=== PATIENT | female | born 1955 | race Caucasian/White ===

== ENCOUNTER 2017-01-22 08:43 | Emergency (ER) | payer OTHER ==
[~2017-01-22] VITALS: Ht 157.5 cm; Wt 68.0 kg
[~2017-01-22 08:43] MED LIST: ESCI10TA PO
[2017-01-22 08:46] VITALS: Ht 157.5 cm; Wt 68.0 kg
[2017-01-22] MEDS ORDERED: ASPIRIN 325 MG TAB PO STA (09:06)
[2017-01-22] MEDS ORDERED: SOD CHLORIDE 0.9% 1,000 ML IV STA ×2 (09:06→09:17)
[2017-01-22] MEDS ORDERED: LORAZEPAM 2 MG INJ IV STA (09:06)
[2017-01-22] MEDS ORDERED: ONDANSETRON 4 MG INJ IV STA ×2 (09:17→10:54)
--- NOTE | 2017-01-22 09:22 | ERD ---
ER Documentation Chief Complaint Date/Time DATE: 01/22/17 TIME: 09:17 Chief Complaint Complains of mid-sternal chest pain radiates to the arm HPI This is a 61-year-old female with a history of anxiety. She presents to the emergency department indicating she has been experiencing epigastric discomfort since 11 PM yesterday evening, 10 hours prior to arrival. She states the epigastric pain is a sharp shooting pain with no alleviating or exacerbating factors. She states she never had any similar symptoms in the past. She also complains of a sharp shooting pain underneath her left breast and contrary to the triage note states it does not radiate to the neck arm back or jaw. She is no shortness of breath at rest or exertion. She denies any chest pressure. She feels nauseous but has not experienced any hemoptysis hematemesis and no melanotic stools. She denies any recent travel or prolonged immobilization. She denies any suicidal homicidal thoughts or ideations but states she has been undergoing a significant amount of stress which has been present for the past several years as her daughter 3 years ago and her mother one year ago. ROS All systems reviewed and are negative except as per history of present illness. Medications Home Meds Reported Medications Escitalopram Oxalate* (Lexapro*) 10 Mg Tablet, 10 MG PO DAILY, TAB 11/07/14 Allergies Allergies: Coded Allergies: codeine (Verified Allergy, Intermediate, RASH, 01/22/17) PMhx/Soc History of Surgery: Yes (C SECTION) Anesthesia Reaction: No Hx Neurological Disorder: No Hx Respiratory Disorders: No Hx Cardiac Disorders: No Hx Psychiatric Problems: No Hx Miscellaneous Medical Probl: No Hx Alcohol Use: No Hx Substance Use: No Hx Tobacco Use: No Physical Exam Vitals Vital Signs Date Time Temp Pulse Resp B/P Pulse Ox O2 Delivery O2 Flow Rate FiO2 01/22/17 09:35 77 18 122/65 98 Room Air 01/22/17 08:46 97.6 76 20 137/66 100 Physical Exam Constitutional:Well-developed. Well-nourished. HEENT:Normocephalic. Atraumatic.Pupils were equal round reactive to light. Moist mucous membranes.No tonsillar exudates. Neck: No nuchal rigidity. No lymphadenopathy. No posterior cervical spine tenderness or step-offs. Respiratory: Not using accessory muscles of respiration.Lungs were clear to auscultation bilaterally. No rhonchi. No rales. No wheezing. Cardiovascular: Regular rate regular rhythm.No murmurs. No rubs were appreciated.S1, S2 normal. Distal pulses are palpable 2+ bilaterally. Tenderness over the left chest wall with no crepitus no ecchymosis no flail chest GI: Abdomen was soft. Epigastric tenderness Non Distended. No pulsatile abdominal masses or bruits. No rebound. No guarding. Bowel sounds were present and normal. Muscle skeletal: Full range of motion of both the upper and lower extremities bilaterally.Normal muscle tone.No assymetrical calf tenderness or swelling. Skin: No petechia, no purpura. No lesions on the palms or the soles of the feet. No maculopapular rash. NEURO: Patient was alert, awake, orientated x3.No facial droop. Gait observed and normal with no ataxia.Speech had regular rate and rhythm. No focal neurological deficits. Result Diagram: 01/22/1720 01/22/17 0920 Results 24 hrs Laboratory Tests Test 01/22/17 09:20 White Blood Count 7.810^3/ul Red Blood Count 5.2310^6/ul Hemoglobin 15.3g/dl Hematocrit 45.8% Mean Corpuscular Volume 87.6fl Mean Corpuscular Hemoglobin 29.3pg Mean Corpuscular Hemoglobin Concent 33.4g/dl Red Cell Distribution Width 13.8% Platelet Count 36410^3/UL Mean Platelet Volume 10.1fl Neutrophils % 88.9% Lymphocytes % 6.8% Monocytes % 3.3% Eosinophils % 0.4% Basophils % 0.3% Nucleated Red Blood Cells % 0.0/100WBC Neutrophils # 7.010^3/ul Lymphocytes # 0.510^3/ul Monocytes # 0.310^3/ul Eosinophils # 0.010^3/ul Basophils # 0.010^3/ul Nucleated Red Blood Cells # 0.010^3/ul Prothrombin Time 14.3Sec Prothrombin Time Ratio 1.1 INR International Normalized Ratio 1.11 Activated Partial Thromboplast Time 35.7Sec Sodium Level 139mmol/L Potassium Level 3.6mmol/L Chloride Level 104mmol/L Carbon Dioxide Level 22mmol/L Anion Gap 17 Blood Urea Nitrogen 17mg/dl Creatinine 0.66mg/dl Glucose Level 112mg/dl Calcium Level 9.0mg/dl Total Bilirubin 0.7mg/dl Direct Bilirubin 0.00mg/dl Indirect Bilirubin 0.7mg/dl Aspartate Amino Transf (AST/SGOT) 30IU/L Alanine Aminotransferase (ALT/SGPT) 28IU/L Alkaline Phosphatase 77IU/L Creatine Kinase 70IU/L Creatine Kinase Index 0.9 Creatinine Kinase MB (Mass) 0.63ng/ml Troponin I < 0.012ng/ml B-Type Natriuretic Peptide 104PG/ML Total Protein 7.2g/dl Albumin 4.1g/dl Globulin 3.10g/dl Albumin/Globulin Ratio 1.32 Amylase Level 76U/L Lipase 53U/L Current Medications Medications (Trade) Dose Ordered Sig/[place] Route PRN Reason Start Time Stop Time Status Last Admin Dose Admin Sodium Chloride (NS) 1,000 ml @ 1,000 mls/hr Q1H STAT IV 01/22/17 09:06 01/22/17 10:05 DC 01/22/17 09:42 Aspirin (Aspirin) 325 mg ONCE STAT PO 01/22/17 09:06 01/22/17 09:07 DC 01/22/17 09:41 Lorazepam 0.5 mg 0.5 mg ONCE STAT IV 01/22/17 09:06 01/22/17 09:07 DC 01/22/17 09:41 Sodium Chloride (NS) 1,000 ml @ 1,000 mls/hr Q1H STAT IV 01/22/17 09:17 01/22/17 10:16 DC 01/22/17 09:42 Ondansetron HCl (Zofran Inj) 4 mg ONCE STAT IV 01/22/17 09:17 01/22/17 09:18 DC 01/22/17 09:41 IV Flush 10 ml 10 ml STK-MED ONCE .ROUTE 01/22/17 10:34 01/22/17 10:35 DC 01/22/17 10:49 Sodium Chloride (NS) 100 ml @ ud STK-MED ONCE .ROUTE 01/22/17 10:34 01/22/17 10:35 DC 01/22/17 10:49 Iohexol (Omnipaque 300mg/ ml) 30 ml STK-MED ONCE .ROUTE 01/22/17 10:34 01/22/17 10:35 DC Iohexol (Omnipaque 300mg/ ml) 150 ml STK-MED ONCE .ROUTE 01/22/17 10:34 01/22/17 10:35 DC 01/22/17 10:49 Morphine Sulfate (morphine) 4 mg ONCE STAT IV 01/22/17 10:54 01/22/17 10:57 DC 01/22/17 11:10 Ondansetron HCl (Zofran Inj) 4 mg ONCE STAT IV 01/22/17 10:54 01/22/17 10:56 DC 01/22/17 11:10 Procedures/MDM The patient presented to the emergency department with epigastric pain. My differential diagnosis included but was not limited to abdominal aortic aneurysm , choledocholithiasis, gallstone ileus, renal colic, pyelonephritis, pancreatitis, peptic ulcer disease, atypical myocardical infarction, mesenteric ischemia, GERD, pulmonary infarction. The patient was placed on a it quality assurance analyst, continuous pulse oximetry and IV access was established by nursing staff. An EKG was obtained to rule out myocardial ischemia. There was no elevation of LFTs to suggest ductal obstruction, cholangitis, cholecystiitis or hepatitis. Given that the urinalysis did not show bilirubinuria, my suspicion for common duct obstruction or hepatitis was low. 12 Lead EKG tracing ordered and reviewed by myself showed: Normal sinus rhythm of 70 bpm and no arrhythmia. TN interval normal. QRS duration normal. No ST segment elevation No ST segment depression. No changes consistent with acute ischemia. The patient also presented to the emergency department complaining of chest pain. My clinical evaluation and workup was to distinguish minor causes of chest pain from acute life threatening cardiopulmonary causes such as myocardial infarction, pulmonary embolism, aortic dissection, esophageal rupture , cardiac tamponade, The patients chest pain was reproduced by palpation and horizontal flexion of the arms. It was my clinical impression that the pain was a result of inflammation of the skin and subcutaneous structures of the chest wall versus myocardial ischemia. I felt the patient had low-risk chest pain and could therefore be safely discharged with close follow-up. Regarding the patient's abdominal pain I did obtain a CT scan of the abdomen which was reviewed by the radiologist as well as myself and indicated the following: Mild scattered colonic wall thickening is nonspecific in the setting of under distension, however, an acute colitis may have this appearance in the appropriate clinical setting. No evidence of bowel obstruction. Normal-caliber appendix.. Moderate lumbar levoscoliosis with multilevel degenerative changes. The patient was very tearful during repeat examinations. She however denied any suicidal homicidal thoughts ideations. I did have the pediatric social worker speak with the patient to provide different outpatient resources for the patient on a psychiatric basis. Observation Note: Time: 4 hours Family Hx: No Hypertension Evaluation: Multiple exams showed improving symptoms and no evidence of peritoneal signs. The patient will be sent home with prophylactic antibiotics for acute colitis given Cipro and Flagyl. She had no electrolyte abnormalities. Her pain had completely resolved after receiving IV morphine and Zofran Departure Diagnosis: Primary Impression: Costochondritis, acute Additional Impression: Colitis, acute Condition: Fair LIGIA REYES Jan 22, 2017 09:22
[2017-01-22 09:35] VITALS: PULSE 77
[2017-01-22 09:41] LABS: ADD SCAN DIFF NO
[2017-01-22 09:45] LABS: ABNORMAL IP MESSAGE 1; BASOPHILS % 0.3 % (0.0-2.0); EOSINOPHILS % 0.4 % (0.0-7.0); HEMATOCRIT 45.8 % (37.0-47.0); HEMOGLOBIN 15.3 g/dl (12.0-16.0); LYMPHOCYTES # 0.5 10^3/ul (0.8-2.9); LYMPHOCYTES % 6.8 % (15.0-51.0); MEAN CORPUSCULAR HEMOGLOBIN 29.3 pg (29.0-33.0); MEAN CORPUSCULAR HGB CONC 33.4 g/dl (32.0-37.0); MEAN CORPUSCULAR VOLUME 87.6 fl (82.0-101.0); MEAN PLATELET VOLUME 10.1 fl (7.4-10.4); MONOCYTE # 0.3 10^3/ul (0.3-0.9); MONOCYTES % 3.3 % (0.0-11.0); NEUTROPHILS % 88.9 % (39.0-77.0); PLATELET COUNT 273 10^3/UL (140-415); RED BLOOD COUNT 5.23 10^6/ul (4.20-5.40); RED CELL DISTRIBUTION WIDTH 13.8 % (11.5-14.5); WHITE BLOOD COUNT 7.8 10^3/ul (4.8-10.8)
[2017-01-22 09:56] LABS: INR 1.11; PROTIME 14.3 Sec (12.2-14.2); PT RATIO 1.1
[2017-01-22 09:57] LABS: ALBUMIN 4.1 g/dl (3.3-4.9); PARTIAL THROMBOPLASTIN TIME 35.7 Sec (25.0-35.0)
[2017-01-22 09:58] LABS: CHLORIDE 104 mmol/L (97-110); POTASSIUM 3.6 mmol/L (3.5-5.1); SODIUM 139 mmol/L (135-144)
--- NOTE | 2017-01-22 09:59 | RADRPT ---
PROCEDURE: Chest Radiograph. CLINICAL INDICATION: Chest pain TECHNIQUE: Single frontal chest radiograph. COMPARISON: Chest radiograph 06/13/2013 FINDINGS: The cardiomediastinal silhouette is within normal limits. No infiltrate or effusion is seen. Th e bones are intact. IMPRESSION: 1. Unremarkable chest radiograph. RPTAT: AA .Alexander Peña MD, MD Date Time Electronically viewed and signed by .Alexander Peña MD, on 01/22/2017 09:59 .B/
[2017-01-22 10:00] LABS: ALBUMIN/GLOBULIN RATIO 1.32; ALKALINE PHOSPHATASE 77 IU/L (42-121); ANION GAP 17 (8-16); ASPARTATE AMINO TRANSFERASE 30 IU/L (15-46); BILIRUBIN,INDIRECT 0.7 mg/dl (0-1.1); BILIRUBIN,TOTAL 0.7 mg/dl (0.2-1.3); BLOOD UREA NITROGEN 17 mg/dl (7-20); CARBON DIOXIDE 22 mmol/L (21-31); CREATININE 0.66 mg/dl (0.44-1.00); TOTAL PROTEIN 7.2 g/dl (6.1-8.1)
[2017-01-22 10:01] LABS: ALANINE AMINOTRANSFERASE 28 IU/L (13-69); AMYLASE 76 U/L (11-123); CREATINE KINASE 70 IU/L (23-200); GLUCOSE 112 mg/dl (70-220)
[2017-01-22 10:09] LABS: B-TYPE NATRIURETIC PEPTIDE 104 PG/ML (0-125); CK-MB 0.63 ng/ml (0.0-2.4)
[2017-01-22 10:14] LABS: TROPONIN-I < 0.012 ng/ml (0.00-0.12)
[2017-01-22] MEDS ORDERED: IOHEXOL 300MG/ML 150 ML BTL ONE (10:34)
[2017-01-22] MEDS ORDERED: IOHEXOL 300MG/ML 30 ML BTL ONE (10:34)
[2017-01-22] MEDS ORDERED: SOD CHLORIDE 0.9% 100 ML ONE (10:34)
[2017-01-22] MEDS ORDERED: morphine 4 MG/ML VIAL IV STA (10:54)
--- NOTE | 2017-01-22 11:03 | RADRPT ---
PROCEDURE: CT Abdomen and Pelvis with contrast. CLINICAL INDICATION: Abdominal pain TECHNIQUE: CT scan of the abdomen and pelvis with contrast was performed on a multidetector high-r esolution CT scanner. Coronal and sagittal reformatted images were obtained from the axial source im ages. Images were reviewed on a high-resolution PACS workstation. 80 cc of Isovue 300 iodinated cont rast was administered intravenously without reported complication. The total exam CTDI equals 11 mG y and the total exam DLP equals 635 mGy-cm. One or more of the following dose reduction techniques were used: Automated exposure control, Adjustment of the mA and/or kV according to patient size, and /or use of iterative reconstruction technique. COMPARISON: None. FINDINGS: Bibasilar atelectasis. No suspicious hepatic mass identified. The portal vein is patent. The pancreas, spleen and adrenals are unremarkable. No focal pericholecystic inflammatory changes. No hydronephrosis. No obstructing renal stone. No bowel obstruction. Normal-caliber appendix. Mild scattered colonic wall thickening. No significant retroperitoneal lymphadenopathy, ascites or evidence of pneumoperitoneum. Moderate lumbar levoscoliosis with multilevel degenerative changes. IMPRESSION: Mild scattered colonic wall thickening is nonspecific in the setting of under distension, however, a n acute colitis may have this appearance in the appropriate clinical setting. No evidence of bowel obstruction. Normal-caliber appendix.. Moderate lumbar levoscoliosis with multilevel degenerative changes. RPTAT: AA .Calvin Martinez MD, Date Time Electronically viewed and signed by .Calvin Martinez MD, on 01/22/2017 11:02 .T/
[2017-01-22] MEDS ORDERED: CIPR500T4 PO (11:53)
[2017-01-22] MEDS ORDERED: METR500T PO (11:53)
[2017-01-22 12:20] VITALS: BP 109/62; RESP 20
== END 2017-01-22 12:20 | disposition home or self-care (01) ==
LOC: E/R 08:43
DX: M94.0 Chondrocostal junction syndrome [Tietze] (principal); K52.9 Noninfective gastroenteritis and colitis, unspecified; R40.2142 Coma scale, eyes open, spontaneous, at arrival to emergency department; R40.2362 Coma scale, best motor response, obeys commands, at arrival to emergency department; R40.2252 Coma scale, best verbal response, oriented, at arrival to emergency department; R10.13 Epigastric pain
CPT/HCPCS: 71010; 74177; 80053; 82150; 82550; 82553; 83690; 83880; 84484; 85025; 85610; 85730; 93005; 96374; 96375; 96376; J2060; J2270; J2405; J7030; Q9967; Z7502; Z7610

== ENCOUNTER 2017-01-24 16:57 | Emergency (ER) | payer OTHER ==
[~2017-01-24] VITALS: Wt 67.5 kg
[~2017-01-24 16:57] MED LIST changes: +CIPR500T4 PO; +METR500T PO
[2017-01-24] MEDS ORDERED: ONDANSETRON (ODT) 4 MG TAB ODT STA (18:10)
--- NOTE | 2017-01-24 18:12 | ERD ---
ER Documentation Chief Complaint Date/Time DATE: 01/24/17 TIME: 18:10 Chief Complaint ABD PAIN AND DIZZINESS AFTER STARTING ABX . NO DIARRHEA NOTED HPI This is a 61-year-old female presents to the emergency room for evaluation of abdominal cramping, dizziness. The patient was seen yesterday and was diagnosed with colitis. She was discharged home with ciprofloxacin, Flagyl. Patient states that after taking Flagyl she did have abdominal cramping, did feel slightly dizzy. The patient does state she has a history of anxiety and she does feel mildly anxious as well. The patient denies any vomiting associated with this or any diarrhea. She denies any fevers or chills. ROS All systems reviewed and are negative except as per history of present illness. Medications Home Meds Active Scripts Metronidazole* (Flagyl*) 500 Mg Tablet, 500 MG PO BID for 10 Days, TAB Prov:AMY,LIGIA 01/22/17 Ciprofloxacin Hcl* (Ciprofloxacin Hcl*) 500 Mg Tablet, 500 MG PO BID for 10 Days , TAB Prov:LIGIA REYES 01/22/17 Reported Medications Escitalopram Oxalate* (Lexapro*) 10 Mg Tablet, 10 MG PO DAILY, TAB 11/07/14 Allergies Allergies: Coded Allergies: codeine (Verified Allergy, Intermediate, RASH, 01/22/17) PMhx/Soc History of Surgery: Yes (C SECTION) Anesthesia Reaction: No Hx Neurological Disorder: No Hx Respiratory Disorders: No Hx Cardiac Disorders: No Hx Psychiatric Problems: No Hx Miscellaneous Medical Probl: No (anxiety) Hx Alcohol Use: No Hx Substance Use: No Hx Tobacco Use: No Physical Exam Vitals Vital Signs Date Time Temp Pulse Resp B/P Pulse Ox O2 Delivery O2 Flow Rate FiO2 01/24/17 17:09 98.8 71 20 178/90 98 Physical Exam Const: No acute distress Head: Atraumatic Eyes: Normal Conjunctiva ENT: Normal External Ears, Nose and Mouth. Neck: Full range of motion..~ No meningismus. Resp: Clear to auscultation bilaterally Cardio: Regular rate and rhythm, no murmurs Abd: Soft, non tender, non distended. Normal bowel sounds Skin: No petechiae or rashes Back: No midline or flank tenderness Ext: No cyanosis, or edema Neur: Awake and alert Psych: Mildly anxious affect Procedures/MDM This 61-year-old female presents to the emergency room for evaluation of dizziness and abdominal discomfort after being diagnosed with colitis and taking ciprofloxacin and Flagyl. This patient is nontoxic appearing, no acute distress. Afebrile and hemodynamically stable. I evaluated this patient and she said that she did not want to take the Cipro and Flagyl. I advised I can write her prescription for Augmentin to take instead of those 2 medications. She verbalized understanding. This patient was given 1 p.o. Augmentin, Zofran here in the emergency room. I do feel that this patient has a an anxiety component to her dizziness. The patient states that she is no longer dizzy after verbally consoling her. The patient will be discharged home with a prescription for Augmentin at this time. Departure Diagnosis: Primary Impression: Abdominal pain Additional Impression: Encounter for medication adjustment Condition: Stable JAIRON DIEGO DO Jan 24, 2017 18:12
[2017-01-24] MEDS ORDERED: AMOX1TAB10 PO (18:13)
[2017-01-24] MEDS ORDERED: AMOXICILLIN/CLAV 875 MG TAB PO ONE (18:30)
== END 2017-01-24 18:35 | disposition home or self-care (01) ==
LOC: FTE 16:57 → E/R 18:35
DX: R10.9 Unspecified abdominal pain (principal)
CPT/HCPCS: Z7502; Z7610; 99283